=== PATIENT | male | born 1990 | race African-American/Black ===

== ENCOUNTER 2019-03-22 13:15 | Emergency (ER) | payer BC, MEDICAID ==
[~2019-03-22] VITALS: Ht 172.7 cm; Wt 80.0 kg
[2019-03-22 16:36] LABS: BASOPHILS % 0.8 % (0.0-2.0); EOSINOPHILS % 3.8 % (0.0-5.0); HEMATOCRIT. 37.1 % (42.0-52.0); HEMOGLOBIN. 11.8 g/dL (14.0-18.0); MEAN CORPUSCULAR HEMOGLOBIN 23.2 pg (28.0-32.0); MEAN CORPUSCULAR VOLUME 73.3 fL (80.0-94.0); MEAN PLATELET VOLUME 7.7 fl (7.4-10.4); MONOCYTES % 7.5 % (2.0-8.0); NEUTROPHILS % 61.9 % (40.0-76.0); PLATELET 240 x1000/uL (130-400); RED BLOOD CELL COUNT 5.06 mill/uL (4.7-6.1); RED CELL DISTRIBUTION WIDTH 20.9 % (11.6-14.6)
[2019-03-22 16:43] LABS: CHLORIDE 110 mEq/L (98-107)
[2019-03-22 16:47] LABS: ETHANOL BLOOD < 10 mg/dL
[2019-03-22 17:18] LABS: CLARITY URINE CLEAR (CLEAR); COLOR URINE YELLOW (YELLOW); KETONES URINE NEGATIVE (NEGATIVE); LEUKOCYTE ESTERASE URINE 1+ (NEGATIVE); NITRITE URINE NEGATIVE (NEGATIVE); OCCULT BLOOD URINE NEGATIVE (NEGATIVE); PH URINE 6.5 (4.5-8.0); PROTEIN URINE NEGATIVE (NEGATIVE); SPECIFIC GRAVITY URINE 1.003 (1.005-1.030); UROBILINOGEN URINE 0.2 E.U./dL (0.2-1.0)
[2019-03-22 17:35] LABS: *AMPHETAMINES SCREEN URINE NEGATIVE (NEGATIVE); *BARBITURATES SCREEN URINE NEGATIVE (NEGATIVE); *BENZODIAZEPINES SCREEN URINE PRESUMTIVE POSITIVE (NEGATIVE); *COCAINE SCREEN URINE PRESUMTIVE POSITIVE (NEGATIVE); METHADONE URINE SCREEN NEGATIVE (NEGATIVE)
[2019-03-22 17:36] LABS: CANNABINOID URINE SCREEN PRESUMTIVE POSITIVE (NEGATIVE); OPIATES URINE SCREEN NEGATIVE (NEGATIVE)
[2019-03-22 17:38] LABS: PHENCYCLIDINE URINE SCREEN NEGATIVE (NEGATIVE)
[2019-03-23 02:07] VITALS: BP 130/75
== END 2019-03-23 02:11 | disposition home or self-care (01) ==
LOC: ER 13:15
DX: F14.10 Cocaine abuse, uncomplicated (principal); F12.10 Cannabis abuse, uncomplicated; F13.10 Sedative, hypnotic or anxiolytic abuse, uncomplicated; R41.82 Altered mental status, unspecified
CPT/HCPCS: 36415; 71045; 80305; 80307; 80320; 80329; 81003; 93005; 99284; G0480

== ENCOUNTER 2019-07-16 18:47 | Emergency (ER) | payer MEDICAID ==
[~2019-07-16] VITALS: Ht 170.2 cm; Wt 82.0 kg
[~2019-07-16 18:47] MED LIST: KEPP250 PO; LEVO500T2 MT; LEVO50TA8 PO
[2019-07-16] MEDS ORDERED: SODIUM CHLORIDE 0.9% 1,000 ML IV ONE (20:01)
[2019-07-16] MEDS ORDERED: ONDANSETRON HCL 4MG/2ML INJ IV STA (20:01)
[2019-07-16] MEDS ORDERED: LEVETIRACETAM 500MG PREMIX 100 ML IV ONE (20:15)
[2019-07-16 20:29] LABS: BASOPHILS % 0.8 % (0.0-2.0); EOSINOPHILS % 3.7 % (0.0-5.0); HEMATOCRIT. 34.8 % (42.0-52.0); LYMPHOCYTES % 25.2 % (20.0-50.0); MEAN CORPUSCULAR HEMOGLOBIN 21.8 pg (28.0-32.0); MEAN CORPUSCULAR VOLUME 68.9 fL (80.0-94.0); MEAN PLATELET VOLUME 8.1 fl (7.4-10.4); MONOCYTES % 7.7 % (2.0-8.0); NEUTROPHILS % 62.6 % (40.0-76.0); PLATELET 336 x1000/uL (130-400); RED BLOOD CELL COUNT 5.05 mill/uL (4.7-6.1); RED CELL DISTRIBUTION WIDTH 20.3 % (11.6-14.6)
[2019-07-16 20:30] VITALS: BP 124/78
[2019-07-16 20:34] LABS: CHLORIDE 110 mEq/L (98-107)
[2019-07-16 20:38] LABS: ETHANOL BLOOD < 10 mg/dL
[2019-07-16 20:54] LABS: PLATELET ESTIMATE NORMAL
[2019-07-16 21:43] LABS: CLARITY URINE CLEAR (CLEAR); COLOR URINE YELLOW (YELLOW); KETONES URINE NEGATIVE (NEGATIVE); LEUKOCYTE ESTERASE URINE NEGATIVE (NEGATIVE); NITRITE URINE NEGATIVE (NEGATIVE); OCCULT BLOOD URINE NEGATIVE (NEGATIVE); PROTEIN URINE NEGATIVE (NEGATIVE); SPECIFIC GRAVITY URINE 1.024 (1.005-1.030); UROBILINOGEN URINE 0.2 E.U./dL (0.2-1.0)
[2019-07-16 21:59] LABS: *AMPHETAMINES SCREEN URINE NEGATIVE (NEGATIVE); *BARBITURATES SCREEN URINE NEGATIVE (NEGATIVE); *BENZODIAZEPINES SCREEN URINE PRESUMTIVE POSITIVE (NEGATIVE); *COCAINE SCREEN URINE NEGATIVE (NEGATIVE)
[2019-07-16 22:00] LABS: CANNABINOID URINE SCREEN PRESUMTIVE POSITIVE (NEGATIVE); METHADONE URINE SCREEN NEGATIVE (NEGATIVE); OPIATES URINE SCREEN PRESUMTIVE POSITIVE (NEGATIVE); PHENCYCLIDINE URINE SCREEN NEGATIVE (NEGATIVE)
== END 2019-07-16 23:35 | disposition home or self-care (01) ==
LOC: ER 18:47
DX: T40.2X1A Poisoning by other opioids, accidental (unintentional), initial encounter (principal); G92 Toxic encephalopathy; Y92.89 Other specified places as the place of occurrence of the external cause; T43.641A Poisoning by ecstasy, accidental (unintentional), initial encounter; D64.9 Anemia, unspecified; I25.2 Old myocardial infarction; I50.9 Heart failure, unspecified; Z90.49 Acquired absence of other specified parts of digestive tract; Z98.890 Other specified postprocedural states; F14.10 Cocaine abuse, uncomplicated; F12.10 Cannabis abuse, uncomplicated; Z79.899 Other long term (current) drug therapy
CPT/HCPCS: 36415; 80053; 80305; 80320; 81003; 84484; 85025; 93005; 96365; 96366; 96375; 99284; J1953; J2405; J7030; G0480

== ENCOUNTER 2019-11-09 20:49 | Emergency (ER) | payer MEDICAID ==
[~2019-11-09] VITALS: Ht 165.1 cm; Wt 87.0 kg
[2019-11-09 21:12] VITALS: BP 134/93
== END 2019-11-09 22:51 | disposition home or self-care (01) ==
LOC: ER 20:49
DX: T40.601A Poisoning by unspecified narcotics, accidental (unintentional), initial encounter (principal); F12.10 Cannabis abuse, uncomplicated; Z79.899 Other long term (current) drug therapy; F13.20 Sedative, hypnotic or anxiolytic dependence, uncomplicated; Y92.89 Other specified places as the place of occurrence of the external cause
CPT/HCPCS: 71045; 93005; 99283

== ENCOUNTER 2024-08-11 20:08 | Emergency (ER) | payer MEDICAID, OTHER ==
[~2024-08-11] VITALS: Ht 177.8 cm; Wt 105.0 kg
[2024-08-11 20:10] VITALS: TEMP 36.7; O2SAT 98
[2024-08-11 21:45] LABS: CLARITY URINE CLEAR (CLEAR); COLOR URINE YELLOW (YELLOW); GLUCOSE URINE NEGATIVE (NEGATIVE); KETONES URINE TRACE (NEGATIVE); LEUKOCYTE ESTERASE URINE NEGATIVE (NEGATIVE); NITRITE URINE NEGATIVE (NEGATIVE); OCCULT BLOOD URINE NEGATIVE (NEGATIVE); PROTEIN URINE 2+ (NEGATIVE); SPECIFIC GRAVITY URINE 1.025 (1.005-1.030); UROBILINOGEN URINE 0.2 E.U./dL (0.2-1.0)
[2024-08-11 22:04] LABS: *AMPHETAMINES SCREEN URINE NEGATIVE (NEGATIVE); *BARBITURATES SCREEN URINE NEGATIVE (NEGATIVE); *BENZODIAZEPINES SCREEN URINE PRESUMPTIVE POSITIVE (NEGATIVE); *COCAINE SCREEN URINE PRESUMPTIVE POSITIVE (NEGATIVE); CANNABINOID URINE SCREEN PRESUMPTIVE POSITIVE (NEGATIVE); ECSTASY MDMA SCREEN URINE NEGATIVE (NEGATIVE); METHADONE URINE SCREEN NEGATIVE (NEGATIVE); OPIATES URINE SCREEN NEGATIVE (NEGATIVE); PHENCYCLIDINE URINE SCREEN NEGATIVE (NEGATIVE)
[2024-08-11] MEDS: ACETAMINOPHEN 325MG TABLET PO ONE (22:10)
[2024-08-11 22:12] LABS: CHLORIDE 103 mEq/L (98-107); SODIUM 138 mEq/L (136-145)
[2024-08-11 22:13] LABS: BASOPHILS % 0.6 % (0.0-2.0); CARBON DIOXIDE 25 mEq/L (21-32); EOSINOPHILS % 0.3 % (0.0-5.0); LYMPHOCYTES % 9.1 % (20.0-50.0); MEAN CORPUSCULAR HEMOGLOBIN 15.7 pg (28.0-32.0); MEAN CORPUSCULAR HGB CONC 27.1 g/dL (31.0-37.0); MEAN CORPUSCULAR VOLUME 57.8 fL (80.0-94.0); MEAN PLATELET VOLUME 8.3 fl (7.4-10.4); PLATELET 159 x1000/uL (130-400); RED BLOOD CELL COUNT 3.53 mill/uL (4.7-6.1); RED CELL DISTRIBUTION WIDTH 29.1 % (11.6-14.6)
[2024-08-11 22:14] LABS: CALCIUM 9.4 mg/dL (8.7-10.4)
[2024-08-11 22:17] LABS: ADD RBC MORPHOLOGY YES; DIFFERENTIAL COMMENT 1; HEMATOCRIT. 20.4 % (42.0-52.0); HEMOGLOBIN. 5.5 g/dL (14.0-18.0)
[2024-08-11 22:18] LABS: CREATININE 1.3 mg/dL (0.6-1.3); GLUCOSE 90 mg/dL (70-105)
[2024-08-11 22:19] LABS: RBC URINE 0-2 /hpf (0-2); SQUAMOUS EPITHELIAL CELL URINE RARE /lpf (RARE/1+); WBC URINE 0-2 /hpf (0-2)
[2024-08-11 22:19] LABS: UREA NITROGEN BLOOD 18 mg/dL (9-23)
[2024-08-11 22:20] LABS: TROPONIN I HIGH SENSITIVITY 26 ng/L (3.0-53)
[2024-08-11 22:20] LABS: BACTERIA URINE TRACE
[2024-08-11 22:25] LABS: ETHANOL BLOOD < 10 mg/dL (<10)
[2024-08-11] MEDS ORDERED: NALO4SPR BOTHNSTRLS (22:29)
[2024-08-11 22:35] LABS: PLATELET ESTIMATE NORMAL
[2024-08-11 22:36] LABS: HYPOCHROMASIA 2+; MICROCYTOSIS 3+; OVALOCYTES 1+; TEAR DROP CELLS 1+
[2024-08-11 22:38] VITALS: BP 123/61; PULSE 80; RESP 20; O2SAT 98
== END 2024-08-11 22:50 | disposition home or self-care (01) ==
LOC: ER 20:08
DX: T40.2X1A Poisoning by other opioids, accidental (unintentional), initial encounter (principal); R41.82 Altered mental status, unspecified; F12.90 Cannabis use, unspecified, uncomplicated; Z79.899 Other long term (current) drug therapy; Y92.89 Other specified places as the place of occurrence of the external cause
CPT/HCPCS: 80305; 80048; 81003; 80320; 83880; 85025; 84484; 36415; 71045; 70450; 93005; 99285; Z7610; G0480